=== PATIENT | female | born 1980 | race Caucasian/White ===

== ENCOUNTER 2017-03-07 18:41 | Inpatient (IN) | payer OTHER ==
[~2017-03-07] VITALS: Ht 170.2 cm; Wt 50.8 kg
[~2017-03-07 18:41] MED LIST: FERR325T3 PO; HYDR-971 PO; NAPR500T3 PO; PREN1TAB51 PO
[2017-03-07] MEDS ORDERED: MAG HYDROX/ALUMINUM HYD/SIMETH 30 ML ORAL.SUSP PO PRN (19:00)
[2017-03-07] MEDS ORDERED: TERBUTALINE 1 MG/ML VIAL. SQ PRN (19:00)
[2017-03-07] MEDS ORDERED: ACETAMINOPHEN 325 MG TABLET. PO PRN (19:00)
[2017-03-07] MEDS ORDERED: ONDANSETRON PF 4 MG/2 ML VIAL. IV PRN (19:00)
[2017-03-07] MEDS ORDERED: IBUPROFEN 600 MG TABLET. PO PRN (19:00)
[2017-03-07] MEDS ORDERED: BUTORPHANOL 2 MG/ML VIAL. IV PRN (19:00)
[2017-03-07] MEDS ORDERED: MISOPROSTOL 200 MCG TABLET VG SCH (19:00)
[2017-03-07] MEDS ORDERED: 0.9 % SODIUM CHLORIDE 10 ML DISP.SYRIN. IV PRN (19:00)
[2017-03-07] MEDS ORDERED: OXYTOCIN 30 UNIT/500 ML PREMIX 500 ML IV PRN (19:00)
[2017-03-07] MEDS ORDERED: diazePAM 5 MG TABLET PO PRN ×2 (19:00)
[2017-03-07] MEDS ORDERED: LIDOCAINE 1% PF 30 ML VIAL. INJ PRN (19:00)
[2017-03-07 20:10] LABS: HEMATOCRIT 35.4 % (36.0-47.0); HEMOGLOBIN 12.5 g/dL (12.0-15.5); RED BLOOD COUNT 3.88 x10^6/uL (3.50-5.40); RED CELL DISTRIBUTION WIDTH 13.3 % (11.5-14.5); WHITE BLOOD COUNT 10.1 x10^3/uL (4.0-11.0)
[2017-03-07 20:18] LABS: BILIRUBIN,URINE NEGATIVE (NEG); GLUCOSE,URINE NEGATIVE (NEG); NITRITE,URINE NEGATIVE (NEG); PH,URINE 6.5; PROTEIN,URINE NEGATIVE (NEG-TRACE); UROBILINOGEN,URINE 0.2 mg/dL (0.2 mg/dL)
[2017-03-07 20:22] LABS: INR 1.1 (0.8-1.1); PROTHROMBIN TIME PATIENT 13.6 SEC (11.7-14.0)
[2017-03-07 20:25] LABS: BARBITURATES NEG (NEG); BENZODIAZEPINES NEG (NEG); CANNABINOIDS POS (NEG); COCAINE NEG (NEG); METHADONE NEG (NEG); OPIATES NEG (NEG); PHENCYCLIDINE NEG (NEG)
[2017-03-07 20:31] LABS: BACTERIA,URINE FEW /HPF (0-FEW); RBC,URINE 0 /HPF (0-2); SQUAMOUS EPITHELIAL CELL,UR MOD /LPF; WBC,URINE 0 /HPF (0-4)
[2017-03-07] MEDS: IV RINGERS,LACTATED 1000ML 1,000 ML IV SCH (20:36)
--- NOTE | 2017-03-07 20:45 | RAD ---
Examination: Ultrasound more than 14 weeks. HISTORY History of demise. COMPARISON None available . Findings : The placenta is location in the fundus. The placenta grade is grade 1. No movement is identified. No cardiac activity identified. The biparietal diameter measures 4.24 centimeter corresponding to 18 weeks and 6 days Head circumference measures 18.38 centimeters corresponding to 20 weeks and 5 days. Abdominal circumference measures 17.7 centimeters corresponding to 22 weeks and 4 days. Femur length measures 4.42 centimeters corresponding to 24 weeks and 4 days Head circumference to abdominal circumference ratio 1.04. Estimated weight is 1 pound and 3 ounces. Gestational age by today's ultrasound 21 weeks and 5 days LMP 07/20/2016. Clinical age by LMP 32 weeks and 6 days. There are overlapping of skull bone suspicious for rody sign. IMPRESSION There is overlapping of skull bones with no evidence of movement or cardiac activity with mishappen abdomen and head, concerning for demise. Electronically signed by: Pk Galindo (Mar 07, 2017 20:44:28)
[2017-03-08] MEDS: fentaNYL PF VIAL 100 MCG/2 ML VIAL IV PRN ×2 (03:16→05:47)
[2017-03-08] MEDS: IV RINGERS,LACTATED 1000ML 1,000 ML IV SCH (05:51)
[2017-03-08 08:05] VITALS: BP 122/70
--- NOTE | 2017-03-08 09:21 | PDOC1 ---
OB - History Hx of Present Care: Good Care Ultrasounds: Normal mid trimester US Abnormal Ultrasound Findings: IUFD Medical Complications: None Past Family/Social History * Past Medical, Surgical, Family and Obstetric Histories reviewed from chart. Blood Type: O+ Rubella: Immune RPR/VDRL: Negative GBS Status: Unknown HBsAG: Negative OB - Chief Complaint & HPI Date of Admission: Date of Admission: Mar 07, 2017 at 19:07 Chief Complaint/History : 5 Para: 4 EDC: May 08, 2017 Reason for admission: induction of labor, IUFD Admission Nurse Assessment Rev: Yes Problems: OB - Admission Exam Physical Exam Vitals: VS - Last 72 Hours, by Label Date Time Temp Pulse Resp B/P Pulse Ox O2 Delivery O2 Flow Rate FiO2 03/08/17 06:50 22 03/08/17 05:47 20 Room Air 03/08/17 03:16 16 Room Air HEENT: Normal, Nasal Mucosa Normal, Oropharynx Normal, Moist Membranes, Fontanelles Normal Heart: Regular Rate Lungs: Clear, Equal Abdomen: Gravid Extremities: Normal Pulses, No tenderness or swelling Reflexes: Normal Cervical Dilatation: None Effacement: 0% Membranes: Intact Heart Rate: Normal Contractions on Admission: >10 Minutes Apart Assessment/Plan Assessment/Plan 31wk IUFD Induction KATHI MCDUFFIE MD Mar 08, 2017 09:21
--- NOTE | 2017-03-08 09:23 | PDOC ---
VAGINAL DELIVERY DATE DATE: 03/08/17 TIME: 09:21 : 5 Para: 4 EDC: Apr 12, 2017 VAGINAL DELIVERY: BREE[facility] VACCUM ASSISTED: No PLACENTA: Spontaneous 0 SEX: Female WEIGHT 775gr Nuchal Cord: No Shoulder Dystocia: No DIAGNOSIS IUFD delivered Problems: KATHI MCDUFFIE MD Mar 08, 2017 09:23
[2017-03-08] MEDS ORDERED: PHENYLEPH/MINERAL OIL/PETROLAT RECTAL OINTMENT 28GM TUBE. RC PRN (09:30)
[2017-03-08] MEDS ORDERED: ZOLPIDEM 5 MG TABLET. PO PRN (09:30)
[2017-03-08] MEDS ORDERED: 0.9 % SODIUM CHLORIDE 10 ML DISP.SYRIN. IV PRN (09:30)
[2017-03-08] MEDS ORDERED: BENZOCAINE 20% TOPICAL AEROSOL SPRAY 57GM CAN. TP PRN (09:30)
[2017-03-08] MEDS ORDERED: SIMETHICONE 80 MG TAB.CHEW PO PRN (09:30)
[2017-03-08] MEDS ORDERED: diphenhydrAMINE HCL 25 MG CAPSULE PO PRN (09:30)
[2017-03-08] MEDS: IBUPROFEN 800 MG TABLET. PO SCH ×2 (09:30→15:30)
[2017-03-08] MEDS ORDERED: MAGNESIUM HYDROXIDE 2,400 MG/30 ML ORAL.SUSP. PO PRN (09:30)
[2017-03-08] MEDS ORDERED: PIPERACILLIN/TAZOBACTAM 3.375 GM in IV NORMAL SALINE 50ML 50 ML IV ONE (09:30)
[2017-03-08] MEDS ORDERED: MAG HYDROX/ALUMINUM HYD/SIMETH 30 ML ORAL.SUSP PO PRN (09:30)
[2017-03-08] MEDS ORDERED: OXYTOCIN 30 UNIT/500 ML PREMIX 500 ML IV PRN (09:30)
[2017-03-08] MEDS ORDERED: HYDROCORTISONE 1% TOPICAL OINTMENT 30GM TUBE. TP PRN (09:30)
[2017-03-08] MEDS ORDERED: ACETAMINOPHEN 325 MG TABLET. PO PRN (09:30)
[2017-03-08] MEDS ORDERED: HYDROCODONE/APAP 5/325MG TABLET. PO PRN (10:45)
[2017-03-08 14:33] LABS: BASO # 0.1 x10^3/uL (0.0-0.2); BASO % 1 % (0-3); EOS % 1 % (0-3); HEMATOCRIT 38.3 % (36.0-47.0); HEMOGLOBIN 13.1 g/dL (12.0-15.5); LYMPH # 2.6 x10^3/uL (1.0-4.8); LYMPH % 24 % (24-48); MEAN CORPUSCULAR HEMOGLOBIN 32 pg (25-35); MEAN CORPUSCULAR HGB CONC 34 g/dL (31-37); MEAN CORPUSCULAR VOLUME 94 fL (79-100); MONO % 6 % (0-9); NEUT % 68 % (31-73); PLATELET COUNT 264 x10^3/uL (140-400); RED BLOOD COUNT 4.07 x10^6/uL (3.50-5.40); RED CELL DISTRIBUTION WIDTH 13.5 % (11.5-14.5); WHITE BLOOD COUNT 10.8 x10^3/uL (4.0-11.0)
[2017-03-08] MEDS ORDERED: FERROUS SULFATE 325 MG TABLET. PO SCH (17:00)
[2017-03-09 06:19] LABS: RPR REFLEX Non Reactive (Non Reactive)
--- NOTE | 2017-03-13 15:38 | PATHOLOGY ---
PATHOLOGY REPORT * * * * * * * * FINAL DIAGNOSIS: 196 gram placenta of an estimated 31-32 weeks gestation with attached membranes and umbilical cord: - Chorionic vessel thrombosis, focal. 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 COMMENT: Intrauterine demise appears to have been present for some time prior to onset of delivery. (JPM:csd; d/t: 03/13/2017) REPORT ELECTRONICALLY SIGNED BY: Héctor Mcfarlane M.D. DATE/TIME: 03/13/2017 15:37 * * * * * * * * GROSS PATHOLOGY: Received in formalin labeled Kalia-placenta is a 13.5 x 10.6 x 2.4 cm souza placenta with a 30 cm long umbilical cord. The three-vessel umbilical cord inserts paracentrally with 3 twists per 5-6 cm. The placental membranes are bluish herring with marginal insertion. The point of rupture cannot be determined. The placenta weighs 196 g. The maternal surface of the specimen is intact. Sectioning through the specimen reveals a reddish pink beefy unremarkable cut surface. Section code: [id number] sections from umbilical cord and membranes, [id number] section adjacent to umbilical cord insertion site, A3 through [id number] fuels sales representative sections of placenta full thickness each. (AKA; 03/12/2017) INITIAL CPT CODE(S): A; 64469 Professional services performed by [facility] [place] [address] Technical services performed by [facility] at [address] [place] [address], [facility] [address], [place] [address]. SPECIMEN(S) RECEIVED: A.Placenta CLINICAL HISTORY: , 31.2 week gestation stillborn, 36yo , EDC 05/08/17, 1lb 11oz female PATIENT: ZACHARIAH FLOYD /AGE: 1008/19/1980 (Age: 36) PATIENT #: [id number] ALT CASE #: SPECIMEN COLLECTION DATE: 03/08/2017 SPECIMEN RECEIVED DATE: 03/09/2017 [facility] - [address] [place] [address] - PHONE: [phone] * * * END OF REPORT * * *
== END 2017-03-08 15:00 | disposition home or self-care (01) | DRG 775 ==
LOC: 3 SO LND 18:41 → OBSVTOIN 19:07
PROVIDERS: ADMIT Specialist; ATTEND Specialist
PROC: 10E0XZZ Delivery of Products of Conception, External Approach (ICD-10-PCS; principal; 2017-03-08)
DX: O36.4XX0 Maternal care for intrauterine death, not applicable or unspecified (principal); Z37.1 Single stillbirth; Z3A.32 32 weeks gestation of pregnancy
CPT/HCPCS: 36415; 76805; 81001; 85027; 85049; 85379; 85384; 85610; 85730; 86593; 86850; 86900; 86901; 88307; G0379; G0481; J2405; J2543; J2590; J3010; J7120

== ENCOUNTER 2018-04-23 12:44 | Day surgery (SDC) | payer OTHER ==
[~2018-04-23 12:44] MED LIST changes: +DEXAMETHASONE SOD PHOS 20 MG/5 ML VIAL.; -FERR325T3 PO; -HYDR-971 PO; +LIDOCAINE 1% PF 2 ML VIAL. ID; +LIDOCAINE 2% PF Vial for OR 5 ML VIAL.; +MIDAZOLAM HCL/PF 2 MG/2 ML VIAL.; -NAPR500T3 PO; +ONDANSETRON PF 4 MG/2 ML VIAL.; +ONDANSETRON PF 4 MG/2 ML VIAL. IV; -PREN1TAB51 PO; +PROPOFOL 20 ML IV; +ROCURONIUM 50 MG/5 ML VIAL.; +fentaNYL PF VIAL 100 MCG/2 ML VIAL; +fentaNYL PF VIAL 100 MCG/2 ML VIAL IV
[2018-04-23 13:07] LABS: NEG OBC UR NEG; POS OBC UR POS; U PREG PATIENT NEGATIVE (NEG)
[2018-04-23] MEDS: IV RINGERS,LACTATED 1000ML 1,000 ML IV (13:19)
[2018-04-23] MEDS: BUPIVACAINE-EPI 0.25%-1:200000 50 ML VIAL. (15:24)
[2018-04-23] MEDS ORDERED: FAMOTIDINE 20 MG/2 ML VIAL (15:24)
[2018-04-23] MEDS ORDERED: KETOROLAC 30 MG/ML INJ FOR OR. INJ (15:25)
[2018-04-23] MEDS ORDERED: NEOSTIGMINE METHYLSULFATE 5 MG/5 ML SYRINGE. (15:44)
[2018-04-23] MEDS ORDERED: GLYCOPYRROLATE 1 MG/5 ML VIAL. (15:44)
[2018-04-23] MEDS ORDERED: SEVOFLURANE 16 TO 30 MINUTES. IH (15:51)
[2018-04-23] MEDS ORDERED: fentaNYL PF VIAL 100 MCG/2 ML VIAL (15:53)
[2018-04-23] MEDS: PROCHLORPERAZINE 10 MG/2 ML VIAL. IV (16:18)
[2018-04-23] MEDS: fentaNYL PF VIAL 100 MCG/2 ML VIAL IV ×2 (16:18→16:34)
[2018-04-23] MEDS: MORPHINE SULFATE 2 MG/ML DISP.SYRIN. IV ×2 (16:41→16:54)
[2018-04-23] MEDS: oxyCODONE/APAP 5/325 1 TAB TABLET PO (18:10)
== END 2018-04-23 18:30 | disposition home or self-care (01) ==
LOC: SURG 12:44
DX: Z30.2 Encounter for sterilization (principal); I10 Essential (primary) hypertension; D64.9 Anemia, unspecified; M54.9 Dorsalgia, unspecified; Z72.89 Other problems related to lifestyle; Z87.891 Personal history of nicotine dependence; Z82.5 Family history of asthma and other chronic lower respiratory diseases
CPT/HCPCS: 58671; 81025; A7015; J0780; J1100; J1885; J2001; J2250; J2270; J2405; J2704; J2710; J3010; J3490; S0028

== ENCOUNTER 2018-05-03 11:29 | Emergency (ER) | payer OTHER ==
[2018-05-03] MEDS ORDERED: IV NORMAL SALINE 1000ML BAG 1,000 ML IV (12:45)
[2018-05-03 13:04] LABS: ADD MAN DIFF? NO
[2018-05-03 13:07] LABS: BASO # 0.1 x10^3/uL (0.0-0.2); BASO % 1 % (0-3); EOS # 0.2 x10^3/uL (0.0-0.7); EOS % 3 % (0-3); HEMATOCRIT 38.5 % (36.0-47.0); LYMPH # 1.9 x10^3/uL (1.0-4.8); LYMPH % 32 % (24-48); MEAN CORPUSCULAR HEMOGLOBIN 29 pg (25-35); MEAN CORPUSCULAR HGB CONC 34 g/dL (31-37); MEAN CORPUSCULAR VOLUME 87 fL (79-100); MONO # 0.3 x10^3/uL (0.0-1.1); MONO % 6 % (0-9); NEUT # 3.4 x10^3uL (1.8-7.7); NEUT % 59 % (31-73); PLATELET COUNT 330 x10^3/uL (140-400); RED BLOOD COUNT 4.42 x10^6/uL (3.50-5.40); RED CELL DISTRIBUTION WIDTH 15.1 % (11.5-14.5); WHITE BLOOD COUNT 5.8 x10^3/uL (4.0-11.0)
[2018-05-03 13:21] LABS: URINE HCG POC HCG NEGATIVE (Negative)
[2018-05-03 13:36] LABS: BILIRUBIN,URINE NEGATIVE (NEG); CLARITY,URINE CLEAR; COLOR,URINE YELLOW; GLUCOSE,URINE NEGATIVE (NEG); NITRITE,URINE NEGATIVE (NEG); PH,URINE 6.5; PROTEIN,URINE NEGATIVE (NEG-TRACE); UROBILINOGEN,URINE 0.2 mg/dL (0.2 mg/dL)
[2018-05-03 13:46] LABS: ANION GAP 7 (6-14); BLOOD UREA NITROGEN 10 mg/dL (7-20); BUN/CREATININE RATIO 13 (6-20); CALCIUM 9.3 mg/dL (8.5-10.1); CARBON DIOXIDE 26 mmol/L (21-32); CHLORIDE 105 mmol/L (98-107); CREATININE 0.8 mg/dL (0.6-1.0); GFR 80.7; GLUCOSE 99 mg/dL (70-99); POTASSIUM 4.2 mmol/L (3.5-5.1); SODIUM 138 mmol/L (136-145)
[2018-05-03 13:48] LABS: AMORPHOUS SEDIMENT,UR PRESENT /HPF; BACTERIA,URINE 0 /HPF (0-FEW); RBC,URINE OCC /HPF (0-2); SQUAMOUS EPITHELIAL CELL,UR MOD /LPF; WBC,URINE RARE /HPF (0-4)
[2018-05-03 13:53] LABS: ALBUMIN 3.8 g/dL (3.4-5.0); ALBUMIN/GLOBULIN RATIO 1.1 (1.0-1.7); ALK PHOS 86 U/L (46-116); ALT (SGPT) 28 U/L (14-59); AST (SGOT) 27 U/L (15-37); TOTAL BILIRUBIN 0.5 mg/dL (0.2-1.0); TOTAL PROTEIN 7.3 g/dL (6.4-8.2)
[2018-05-05 15:11] LABS: CHLAMYDIA PROBE Negative (Negative); GC PROBE Negative (Negative)
== END 2018-05-03 16:08 | disposition home or self-care (01) ==
LOC: ER 16:08
DX: N93.8 Other specified abnormal uterine and vaginal bleeding (principal); R10.9 Unspecified abdominal pain; Z98.51 Tubal ligation status; Z91.048 Other nonmedicinal substance allergy status
CPT/HCPCS: 36415; 76856; 80053; 81001; 81025; 85025; 87086; 87491; 87591; 99285-25; Q0111